=== PATIENT | female | born 1970 | race Caucasian/White ===

== ENCOUNTER → 2017-05-04 | Outpatient (CLI) | payer OTHER ==
[~2017-05-04] MED LIST: NO CURRENT MEDS; PER PO
--- NOTE | 2017-05-05 09:12 | RADIOLOGY IMAGING REPORT ---
FACILITY: [facility] PATIENT NAME: KATARINA ADORNO : [id number] MR: [id number] V: [id number] EXAM DATE: [id number] ORDERING PHYSICIAN: BISMARK IRAHETA TECHNOLOGIST: Candy Soler PROCEDURE:BILATERAL DIGITAL SCREENING MAMMOGRAM WITH CAD ASSISTED INTERPRETATION & 3D TOMOSYNTHESIS COMPARISON:None. INDICATIONS:SCREENING FINDINGS: Moderately dense fibroglandular tissue is seen throughout the breasts. In the upper outer quadrant of the right breast Zone 2 there is a rounded area of increased density for which spot compression view is recommended and possibly right breast Ultrasound depending on the additional imaging findings. There is an additional area of increased density lateral portion left breast Left CC view in the upper portion Left breast and Left MLO view for which spot compression review is recommended and possibly Left breast Ultrasound depending on the additional imaging findings. DIAGNOSTIC CATEGORY 0--INCOMPLETE: NEED ADDITIONAL IMAGING EVALUATION. RECOMMENDATIONS: ADDITIONAL MAMMOGRAPHIC VIEWS REQUIRED: BILATERAL BREASTS. ULTRASOUND: BILATERAL BREASTS. IMPRESSION: BIRADS 0: Incomplete Additional views of both breast and possibly bilateral breast Ultrasound depending on the additional imaging findings. Dictated by: So Carvajal M.D. on 05/04/2017 at 8:20 Transcribed by: SERGE on 05/04/2017 at 16:05 Approved by: So Carvajal M.D. on 05/05/2017 at 9:11 [facility]
== END ==
LOC: MAMO 04-16 00:24
PROVIDERS: ATTEND Student in an Organized Health Care Education/Training Program
DX: Z12.31 Encounter for screening mammogram for malignant neoplasm of breast (principal); R92.8 Other abnormal and inconclusive findings on diagnostic imaging of breast
CPT/HCPCS: 77063; 77067

== ENCOUNTER → 2017-05-14 | Outpatient (CLI) | payer OTHER ==
--- NOTE | 2017-05-17 11:03 | RADIOLOGY IMAGING REPORT ---
FACILITY: [facility] PATIENT NAME: KATARINA ADORNO : [id number] MR: [id number] V: [id number] EXAM DATE: ORDERING PHYSICIAN: DAMIAN MERRITT TECHNOLOGIST: Vianca Swenson PROCEDURE:BILATERAL DIAGNOSTIC DIGITAL MAMMOGRAM WITH CAD ASSISTED INTERPRETATION & 3D TOMOSYNTHESIS COMPARISON:Prior mammograms dated 05/04/17 INDICATIONS:further eval FINDINGS: Patient returns for spot compression views in the CC & MLO projections & a mediolateral view of both breasts. The focal areas of increased density in the upper outer quadrant of both breasts appeared compressible & apparently represent summation shadows. There was no demonstration of malignant appearing mass, malignant appearing calcification or other secondary sign of malignancy in either breast. DIAGNOSTIC CATEGORY 2--BENIGN FINDING. RECOMMENDATIONS: ROUTINE MAMMOGRAM AND CLINICAL EVALUATION. IMPRESSION: BIRADS 2: Benign finding No significant abnormality is seen. Dictated by: So Carvajal M.D. on 05/14/2017 at 14:21 Transcribed by: SHREYA on 05/14/2017 at 14:36 Approved by: So Carvajal M.D. on 05/17/2017 at 11:02 [facility]
== END ==
LOC: MAMO 02:51
PROVIDERS: ATTEND Student in an Organized Health Care Education/Training Program
DX: R92.2 Inconclusive mammogram (principal)
CPT/HCPCS: 77062; 77066

== ENCOUNTER → 2017-10-04 | Outpatient (CLI) | payer OTHER | LOC: RESP 09:58 | PROVIDERS: ATTEND Family Medicine | DX: J98.4 Other disorders of lung (principal) | CPT/HCPCS: 94060; 94726; 94729 ==

== ENCOUNTER → 2018-02-07 | Outpatient (CLI) | payer OTHER ==
[2018-02-07 11:01] LABS: PLATELET COUNT, AUTOMATED 307 K/uL (150-450)
--- NOTE | 2018-02-07 11:20 | RADIOLOGY IMAGING REPORT ---
FACILITY: [facility] [place] PATIENT NAME: Kat Oneal : 1970 MR: [id number] V: [id number] EXAM DATE: ORDERING PHYSICIAN: BERNIE BASSETT TECHNOLOGIST: Location: [facility] [place] Patient: Kat Oneal : 1970 Visit/Account:[id number] Date of Sevice: 02/07/2018 Exam type: CHEST PA AND LAT History: Shortness of breath with wheezing and cough x1 year, getting worse Comparison: None. Findings: Lungs are free of acute effusions, infiltrates or edema. Cardiac silhouette is normal in size. The trachea is in midline. There is no evidence of a pneumothorax or pneumomediastinum. IMPRESSION: 1. No acute cardiopulmonary process is seen Report Dictated By: So Carvajal MD at 02/07/2018 10:53 AM Report E-Signed By: So Carvajal MD at 02/07/2018 11:14 AM WSN:[id number]
== END ==
LOC: LAB 09:38
PROVIDERS: ATTEND Internal Medicine
DX: R06.02 Shortness of breath (principal); R06.2 Wheezing
CPT/HCPCS: 36415; 71046; 82785; 85025

== ENCOUNTER → 2018-05-12 | Outpatient (CLI) | payer OTHER ==
--- NOTE | 2018-05-12 19:05 | RADIOLOGY IMAGING REPORT ---
[place] [facility] [place] NAME: Kat Oneal : 1970 MR: [id number] V: [id number] EXAM DATE: ORDERING PHYSICIAN: DAMIAN MERRITT TECHNOLOGIST: Location: [facility] [place] Patient: Kat Oneal : 1970 Visit/Account:[id number] Date of Sevice: 05/12/2018 CHEST PA LAT COMPARISONS: 2 view chest dated February 07, 2018 ADDITIONAL PERTINENT HISTORY: Cough for 3 weeks. FINDINGS: Cardiomediastinal silhouette: Negative. Pulmonary vasculature: Negative. Lung juarez: Negative. Pleural spaces: Negative. Osseous structures: Negative. Surrounding soft tissues: Negative. IMPRESSION: Normal views of the chest. Report Dictated By: Reuben Yeboah MD at 05/12/2018 7:00 PM Report E-Signed By: Reuben Yeboah MD at 05/12/2018 7:02 PM WSN:[id number]
== END ==
LOC: RAD 18:20
PROVIDERS: ATTEND Family Medicine
DX: R05 Cough (principal)
CPT/HCPCS: 71046